=== PATIENT | male | born 1965 | race Caucasian/White ===

== ENCOUNTER 2016-07-21 08:22 | Inpatient (IN) | payer OTHER ==
[2016-07-21 09:12] VITALS: BMI 35.4
--- NOTE | 2016-07-21 11:23 | HP ---
COWS - Scale Resting Pulse: 1= [place] 81-100 Sweatin= Chills/Flushing Restless Observation: 1= Difficult to Sit Still Pupil Size: 1= Pupils >than Normal Bone or Joint Aches: 1= Mild Discomfort Runny Nose/ Eye Tearin= None GI Upset > 30mins: 0= None Tremor Observation: 2= Slight Tremor Visible Yawning Observation: 0= None Anxiety or Irritability: 2=Irritable/Anxious Goose Flesh Skin: 0=Smooth Skin COWS Score: 9 CIWA Score - CIWA Score Nausea/Vomitin-No Nausea/No Vomiting Muscle Tremors: 4-Moderate,w/Arms Extend Anxiety: 4-Mod. Anxious/Guarded Agitation: 3 Paroxysmal Sweats: 3 Orientation: 0-Oriented Tacttile Disturbances: 0-None Auditory Disturbances: 0-None Visual Disturbances: 0-None Headache: 0-None Present CIWA-Ar Total Score: 14 Admission ROS BHS - HPI Chief Complaint: Withdrawal sx. Allergies/Adverse Reactions: Allergies Allergy/AdvReac Type Severity Reaction Status Date / Time No Known Allergies Allergy Verified 07/21/16 10:27 History of Present Illness: 50 y/o man with a long hx. of drug and alcohol dependence is admitted for detox. Pt. denies previous detox or any sobriety. Exam Limitations: No Limitations - Ebola screening Have you traveled outside of the country in the last 21 days: No Have you had contact with anyone from an Ebola affected area: No Have you been sick,other than usual withdrawal symptoms: No Do you have a fever: No - Review of Systems Constitutional: No Symptoms Reported EENT: reports: No Symptoms Reported Respiratory: reports: No Symptoms reported Cardiac: reports: No Symptoms Reported GI: reports: Abdominal cramping : reports: Frequency Musculoskeletal: reports: Joint Pain Integumentary: reports: No Symptoms Reported Neuro: reports: Tremors Endocrine: reports: No Symptoms Reported Hematology: reports: No Symptoms Reported Psychiatric: reports: No Sypmtoms Reported Other Systems: Reviewed and Negative Patient History - Patient Medical History Hx Anemia: No Hx Asthma: No Hx Chronic Obstructive Pulmonary Disease (COPD): No Hx Cancer: No Hx Cardiac Disorders: No Hx Congestive Heart Failure: No Hx Hypertension: No Hx Hypercholesterolemia: No Hx Pacemaker: No HX Cerebrovascular Accident: No Hx Seizures: No Hx Dementia: No Hx Diabetes: No Hx Gastrointestinal Disorders: No Hx Liver Disease: No Hx Genitourinary Disorders: No Hx Sexually Transmitted Disorders: No Hx Renal Disease (ESRD): No Hx Thyroid Disease: No Hx Human Immunodeficiency Virus (HIV): No Hx Hepatitis C: No Hx Depression: Yes Hx Suicide Attempt: No Hx Bipolar Disorder: No Hx Schizophrenia: No - Patient Surgical History Past Surgical History: Yes Hx Orthopedic Surgery: Yes (L hip replacement in 2013) Other Surgical History: Bilateral meniscus repairs Anesthesia Reaction: No - PPD History Previous Implant?: No PPD to be Administered?: Yes - Smoking Cessation Smoking history: Never smoked - Substance & Tx. History Hx Alcohol Use: Yes Hx Substance Use: Yes Substance Use Type: Alcohol, Opiates Hx Substance Use Treatment: No - Substances Abused Alcohol Route: Oral Frequency: Daily Amount used: 10-12 WHISKEY DRINKS Age of first use: 18 Date of Last Use: 07/20/16 OXYCODONE Route: Oral Frequency: Daily Amount used: 50MG Age of first use: 47 Date of Last Use: 07/21/16 Family Disease History - Family Disease History Family Disease History: Heart Disease: Mother (DE), Other: Sister (opioid pain meds) Admission Physical Exam [facility] - Vital Signs Vital Signs: Vital Signs - 24 hr 07/21/16 09:06 Temperature 97.3 F L Pulse Rate 86 Respiratory 18 Rate Blood Pressure 140/96 - Physical General Appearance: Yes: Sweating, Anxious HEENTM: Yes: Within Normal Limits Respiratory: Yes: Chest Non-Tender, Lungs Clear, Normal Breath Sounds Neck: Yes: Supple Breast: Yes: Breast Exam Deferred Cardiology: Yes: Regular Rhythm, Regular Rate, S1, S2 Abdominal: Yes: Normal Bowel Sounds, Non Tender, Soft Genitourinary: Yes: Within Normal Limits Back: Yes: Within Normal Limits Musculoskeletal: Yes: Within Normal Limits Extremities: Yes: Tremors Neurological: Yes: Fully Oriented, Alert Integumentary: Yes: Diaphoresis Lymphatic: Yes: Within Normal Limits - Diagnostic (1) Alcohol dependence with uncomplicated withdrawal Current Visit: Yes Status: Acute (2) Opioid dependence with withdrawal Current Visit: Yes Status: Acute Cleared for Admission [facility] - Detox or Rehab [facility] Level of Care: Medically Managed Detox Regimen/Protocol: Methadone/Librium [facility] Breath Alcohol Content Breath Alcohol Content: 0 Urine Drug Screen - Results Drug Screen Negative: No Urine Drug Screen Results: TCA-Tricyclic Antidepress, OXY-Oxycodone
[2016-07-21] MEDS ORDERED: ACETAMINOPHEN 325 MG TABLET (FP) PO PRN (11:44)
[2016-07-21] MEDS ORDERED: LOPERAMIDE HCL 2 MG CAPSULE PO PRN (11:44)
[2016-07-21] MEDS ORDERED: IBUPROFEN 400 MG TABLET (FP) PO PRN (11:44)
[2016-07-21] MEDS ORDERED: MAGNESIUM HYDROX 2400MG/30ML ORAL SUSPENSION 30 ML CUP PO PRN (11:44)
[2016-07-21] MEDS ORDERED: MENTHOL/PHENOL 1 EACH UD MM PRN (11:44)
[2016-07-21] MEDS ORDERED: guaiFENesin/D-METHORPHAN HB 10 ML UNIT-DOSE CUPS PO PRN (11:44)
[2016-07-21] MEDS ORDERED: chlordiazePOXIDE HCL 25 MG CAPSULE PO PRN (11:44)
[2016-07-21] MEDS ORDERED: MAGNESIUM CITRATE 300 ML BOTTLE PO PRN (11:44)
[2016-07-21] MEDS ORDERED: P-EPHED 60MG/TRIPROLIDI 2.5MG TABLET PO PRN (11:44)
[2016-07-21] MEDS ORDERED: MAG HYDROX/AL HYDROX/SIMETH 30 ML UNIT-DOSE CUP PO PRN (11:44)
[2016-07-21] MEDS ORDERED: hydrOXYzine PAMOATE 50 MG CAPSULE (FP) PO PRN (11:44)
[2016-07-21] MEDS ORDERED: chlordiazePOXIDE HCL 25 MG CAPSULE PO ONE (12:17)
[2016-07-21] MEDS ORDERED: METHADONE HCL 10 MG TABLET (FOR DETOX USE ONLY) PO ONE ×2 (12:18→23:00)
[2016-07-21 15:45] LABS: URINE APPEARANCE CLEAR; URINE BILIRUBIN NEGATIVE (NEGATIVE); URINE BLOOD NEGATIVE (NEGATIVE); URINE COLOR LTYELLOW; URINE GLUCOSE (UA) NEGATIVE (NEGATIVE); URINE KETONE NEGATIVE (NEGATIVE); URINE LEUK ESTERASE NEGATIVE (NEGATIVE); URINE NITRITE NEGATIVE (NEGATIVE); URINE PROTEIN NEGATIVE (NEGATIVE); URINE UROBILINOGEN NEGATIVE E.U./dl (0.2-1.0)
[2016-07-21] MEDS: chlordiazePOXIDE HCL 25 MG CAPSULE PO SCH ×2 (17:13→22:06)
[2016-07-21] MEDS: diphenhydrAMINE HCL 50 MG CAPSULE PO PRN (22:06)
[2016-07-21] MEDS: THIAMINE HCL 100 MG TABLET (FP) PO SCH (22:06)
[2016-07-22] MEDS: chlordiazePOXIDE HCL 25 MG CAPSULE PO SCH ×4 (05:41→22:08)
[2016-07-22 09:47] LABS: PLATELET COUNT 151 K/MM3 (134-434); RDW 12.5 % (11.9-15.9); WHITE BLOOD COUNT 5.7 K/mm3 (4.0-10.0)
[2016-07-22] MEDS ORDERED: METHADONE HCL 10 MG TABLET (FOR DETOX USE ONLY) PO SCH (10:00)
[2016-07-22] MEDS: PRENATAL VITAMINS W/ FOLIC ACID TABLET (FP) PO SCH (10:08)
--- NOTE | 2016-07-22 10:11 | EKG ---
Test Reason : Blood Pressure : / mmHG Vent. Rate : 085 BPM Atrial Rate : 085 BPM P-R Int : 156 ms QRS Dur : 088 ms QT Int : 352 ms P-R-T Axes : 056 030 029 degrees QTc Int : 418 ms NORMAL SINUS RHYTHM MINIMAL VOLTAGE CRITERIA FOR LVH, MAY BE NORMAL VARIANT BORDERLINE ECG NO PREVIOUS ECGS AVAILABLE Confirmed by RONNELL FOUNTAIN MD ([id number]) on 07/22/2016 10:11:16 AM Referred By: Lit Castañeda Confirmed By:RONNELL FOUNTAIN MD
[2016-07-22 10:14] LABS: ALBUMIN 4.2 g/dl (3.4-5.0); ALK PHOS 79 U/L (45-117); ANION GAP 9 (8-16); BILIRUBIN,TOTAL 0.7 mg/dL (0.2-1.0); CO2 29 mmol/L (21-32); CREATININE 1.1 mg/dL (0.7-1.3); GLUCOSE,RANDOM 146 mg/dL (74-106); SGOT/AST 20 U/L (15-37); SGPT/ALT 32 U/L (12-78)
--- NOTE | 2016-07-22 11:30 | PN ---
[facility] CIWA - CIWA Score Nausea/Vomitin Muscle Tremors: 2 Anxiety: 2 Agitation: 2 Paroxysmal Sweats: 3 Orientation: 0-Oriented Tacttile Disturbances: 1-Very Mild Itch/Numbness Auditory Disturbances: 0-None Visual Disturbances: 0-None Headache: 0-None Present CIWA-Ar Total Score: 12 S COWS - Scale Resting Pulse: 0= [place] 80 or Below Sweatin= Chills/Flushing Restless Observation: 1= Difficult to Sit Still Pupil Size: 1= Pupils >than Normal Bone or Joint Aches: 1= Mild Discomfort Runny Nose/ Eye Tearin= Nasal Congestion GI Upset > 30mins: 1= Stomach Cramp Tremor Observation of Outstretched Hands: 0= None Yawning Observation: 0= None Anxiety or Irritability: 1=Feels Anxious/Irritable Goose Flesh Skin: 0=Smooth Skin COWS Score: 7 [facility] Progress Note (SOAP) Subjective: interrupted sleep, sweats Objective: 07/22/16 11:29 Vital Signs Temperature 97.5 F L 07/22/16 09:46 Pulse Rate 88 07/22/16 09:46 Respiratory Rate 18 07/22/16 09:46 Blood Pressure 131/72 07/22/16 09:46 O2 Sat by Pulse Oximetry (%) Laboratory Tests 07/21/16 07/22/16 07/22/16 13:00 06:00 06:00 WBC 5.7 RBC 4.96 Hgb 15.9 Hct 48.1 MCV 97.0 H MCHC 33.0 RDW 12.5 Plt Count 151 MPV 9.0 Sodium 138 Potassium 4.4 Chloride 100 Carbon Dioxide 29 Anion Gap 9 BUN 26 H Creatinine 1.1 Creat Clearance w eGFR > 60 Random Glucose 146 H Calcium 9.0 Total Bilirubin 0.7 AST 20 ALT 32 Alkaline Phosphatase 79 Total Protein 7.0 Albumin 4.2 Urine Color Ltyellow Urine Appearance Clear Urine pH 7.0 Ur Specific [place] 1.021 Urine Protein Negative Urine Glucose (UA) Negative Urine Ketones Negative Urine Blood Negative Urine Nitrite Negative Urine Bilirubin Negative Urine Urobilinogen Negative Ur Leukocyte Esterase Negative pt aox3 in nad ambulating Assessment: 07/22/16 11:30 withdrawal sx's Plan: cont. detox increase fluids
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
[2016-07-22] MEDS: buPROPion HCL 100 MG TABLET PO SCH (17:32)
[2016-07-22] MEDS: THIAMINE HCL 100 MG TABLET (FP) PO SCH (22:08)
[2016-07-22] MEDS: diphenhydrAMINE HCL 50 MG CAPSULE PO PRN (22:08)
[2016-07-23] MEDS: chlordiazePOXIDE HCL 25 MG CAPSULE PO SCH ×2 (05:08→10:17)
--- NOTE | 2016-07-23 09:07 | PN ---
S CIWA - CIWA Score Nausea/Vomitin Muscle Tremors: 3 Anxiety: 3 Agitation: 2 Paroxysmal Sweats: 2 Orientation: 0-Oriented Tacttile Disturbances: 1-Very Mild Itch/Numbness Auditory Disturbances: 1-Very Mild Visual Disturbances: 1-Very Mild Sensitivity Headache: 2-Mild CIWA-Ar Total Score: 18 BHS COWS - Scale Resting Pulse: 0= [place] 80 or Below Sweatin= Chills/Flushing Restless Observation: 3= Extraneous Movement Pupil Size: 1= Pupils >than Normal Bone or Joint Aches: 2= Severe Diffuse Aches Runny Nose/ Eye Tearin= Runny Nose/Eyes GI Upset > 30mins: 2= Nausea/Diarrhea Tremor Observation of Outstretched Hands: 2= Slight Tremor Visible Yawning Observation: 1= 1-2x During Session Anxiety or Irritability: 1=Feels Anxious/Irritable Goose Flesh Skin: 0=Smooth Skin COWS Score: 15 [facility] Progress Note (SOAP) Subjective: ALERT,IRRITABLE,ANXIOUS,INTERRUPTED SLEEP,TREMOR,PAIN IN THE BODY AND BACK Objective: 07/23/16 09:06 Vital Signs Temperature 97.3 F L 07/23/16 06:14 Pulse Rate 76 07/23/16 06:14 Respiratory Rate 18 07/23/16 06:14 Blood Pressure 137/90 07/23/16 06:14 O2 Sat by Pulse Oximetry (%) Laboratory Last Values WBC 5.7 K/mm3 (4.0-10.0) 07/22/16 06:00 RBC 4.96 M/mm3 (4.00-5.60) 07/22/16 06:00 Hgb 15.9 GM/dL (11.7-16.9) 07/22/16 06:00 Hct 48.1 % (35.4-49) 07/22/16 06:00 MCV 97.0 fl (80-96) H 07/22/16 06:00 MCHC 33.0 g/dl (32.0-35.9) 07/22/16 06:00 RDW 12.5 % (11.9-15.9) 07/22/16 06:00 Plt Count 151 K/MM3 (134-434) 07/22/16 06:00 MPV 9.0 fl (7.5-11.1) 07/22/16 06:00 Sodium 138 mmol/L (136-145) 07/22/16 06:00 Potassium 4.4 mmol/L (3.5-5.1) 07/22/16 06:00 Chloride 100 mmol/L (98-107) 07/22/16 06:00 Carbon Dioxide 29 mmol/L (21-32) 07/22/16 06:00 Anion Gap 9 (8-16) 07/22/16 06:00 BUN 26 mg/dL (7-18) H 07/22/16 06:00 Creatinine 1.1 mg/dL (0.7-1.3) 07/22/16 06:00 Creat Clearance w eGFR > 60 (>60) 07/22/16 06:00 Random Glucose 146 mg/dL (74-106) H 07/22/16 06:00 Calcium 9.0 mg/dL (8.5-10.1) 07/22/16 06:00 Total Bilirubin 0.7 mg/dL (0.2-1.0) 07/22/16 06:00 AST 20 U/L (15-37) 07/22/16 06:00 ALT 32 U/L (12-78) 07/22/16 06:00 Alkaline Phosphatase 79 U/L (45-117) 07/22/16 06:00 Total Protein 7.0 g/dl (6.4-8.2) 07/22/16 06:00 Albumin 4.2 g/dl (3.4-5.0) 07/22/16 06:00 Urine Color Ltyellow 07/21/16 13:00 Urine Appearance Clear 07/21/16 13:00 Urine pH 7.0 (5.0-8.0) 07/21/16 13:00 Ur Specific [place] 1.021 (1.001-1.035) 07/21/16 13:00 Urine Protein Negative (NEGATIVE) 07/21/16 13:00 Urine Glucose (UA) Negative (NEGATIVE) 07/21/16 13:00 Urine Ketones Negative (NEGATIVE) 07/21/16 13:00 Urine Blood Negative (NEGATIVE) 07/21/16 13:00 Urine Nitrite Negative (NEGATIVE) 07/21/16 13:00 Urine Bilirubin Negative (NEGATIVE) 07/21/16 13:00 Urine Urobilinogen Negative E.U./dl (0.2-1.0) 07/21/16 13:00 Ur Leukocyte Esterase Negative (NEGATIVE) 07/21/16 13:00 RPR Titer Nonreactive (NONREACTIVE) 07/22/16 06:00 Assessment: 07/23/16 09:06 WITHDRAWAL SYMPTOM Plan: CONTINUE DETOX
[2016-07-23] MEDS ORDERED: METHADONE HCL 5 MG TABLET (FOR DETOX USE ONLY) PO SCH (10:00)
[2016-07-23] MEDS: PRENATAL VITAMINS W/ FOLIC ACID TABLET (FP) PO SCH (10:17)
[2016-07-23] MEDS: buPROPion HCL 100 MG TABLET PO SCH ×2 (11:07→17:37)
[2016-07-23] MEDS: chlordiazePOXIDE 5 MG CAPSULE PO SCH ×2 (17:37→22:07)
[2016-07-23] MEDS: THIAMINE HCL 100 MG TABLET (FP) PO SCH (22:07)
[2016-07-23] MEDS: diphenhydrAMINE HCL 50 MG CAPSULE PO PRN (22:08)
[2016-07-24] MEDS: chlordiazePOXIDE 5 MG CAPSULE PO SCH ×2 (05:46→10:18)
--- NOTE | 2016-07-24 09:45 | PN ---
S Progress Note (SOAP) Subjective: ALERT,IRRITABLE,ANXIOUS,INTERRUPTED SLEEP,TREMOR Objective: 07/24/16 09:44 Vital Signs Temperature 98.2 F 07/24/16 09:37 Pulse Rate 95 H 07/24/16 09:37 Respiratory Rate 16 07/24/16 09:37 Blood Pressure 143/85 07/24/16 09:37 O2 Sat by Pulse Oximetry (%) Assessment: 07/24/16 09:44 WITHDRAWAL SYMPTOM Plan: CONTINUE DETOX
[2016-07-24] MEDS ORDERED: METHADONE HCL 10 MG TABLET (FOR DETOX USE ONLY) PO ONE (10:00)
[2016-07-24] MEDS: PRENATAL VITAMINS W/ FOLIC ACID TABLET (FP) PO SCH (10:18)
[2016-07-24] MEDS: buPROPion HCL 100 MG TABLET PO SCH ×2 (11:00→16:55)
[2016-07-24] MEDS: chlordiazePOXIDE HCL 10 MG CAPSULE PO SCH ×2 (17:02→22:12)
[2016-07-24] MEDS: THIAMINE HCL 100 MG TABLET (FP) PO SCH (22:13)
[2016-07-24] MEDS: diphenhydrAMINE HCL 50 MG CAPSULE PO PRN (22:13)
[2016-07-25] MEDS: chlordiazePOXIDE HCL 10 MG CAPSULE PO SCH (05:47)
[2016-07-25] MEDS ORDERED: METHADONE HCL 5 MG TABLET (FOR DETOX USE ONLY) PO ONE (06:00)
[2016-07-25 06:25] VITALS: BP 140/78; PULSE 60; TEMP 97.7
[2016-07-25] MEDS ORDERED: METHADONE HCL 10 MG TABLET (FOR DETOX USE ONLY) PO SCH (10:00)
--- NOTE | 2016-07-25 14:11 | DS ---
[facility] Detox Discharge Summary Admission Date: 07/21/16 Discharge Date: 07/25/16 - History Present History: Alcohol Dependence, Opioid Dependence Additional Comments: ADVISED PATIENT TO FOLLOW-UP WITH [facility] AFTER DISCHARGE FROM DETOX FOR GENERAL MEDICAL ASSESSMENT AND FOR ANY ABNORMAL ADMISSION LAB VALUES. Pertinent Past History: Depression. - Physical Exam Results Vital Signs: Vital Signs Temperature 97.7 F 07/25/16 06:00 Pulse Rate 60 07/25/16 06:00 Respiratory Rate 20 07/25/16 06:00 Blood Pressure 140/78 07/25/16 06:00 O2 Sat by Pulse Oximetry (%) Pertinent Admission Physical Exam Findings: WITHDRAWAL SYMPTOMS. Laboratory Last Values WBC 5.7 K/mm3 (4.0-10.0) 07/22/16 06:00 RBC 4.96 M/mm3 (4.00-5.60) 07/22/16 06:00 Hgb 15.9 GM/dL (11.7-16.9) 07/22/16 06:00 Hct 48.1 % (35.4-49) 07/22/16 06:00 MCV 97.0 fl (80-96) H 07/22/16 06:00 MCHC 33.0 g/dl (32.0-35.9) 07/22/16 06:00 RDW 12.5 % (11.9-15.9) 07/22/16 06:00 Plt Count 151 K/MM3 (134-434) 07/22/16 06:00 MPV 9.0 fl (7.5-11.1) 07/22/16 06:00 Sodium 138 mmol/L (136-145) 07/22/16 06:00 Potassium 4.4 mmol/L (3.5-5.1) 07/22/16 06:00 Chloride 100 mmol/L (98-107) 07/22/16 06:00 Carbon Dioxide 29 mmol/L (21-32) 07/22/16 06:00 Anion Gap 9 (8-16) 07/22/16 06:00 BUN 26 mg/dL (7-18) H 07/22/16 06:00 Creatinine 1.1 mg/dL (0.7-1.3) 07/22/16 06:00 Creat Clearance w eGFR > 60 (>60) 07/22/16 06:00 Random Glucose 146 mg/dL (74-106) H 07/22/16 06:00 Calcium 9.0 mg/dL (8.5-10.1) 07/22/16 06:00 Total Bilirubin 0.7 mg/dL (0.2-1.0) 07/22/16 06:00 AST 20 U/L (15-37) 07/22/16 06:00 ALT 32 U/L (12-78) 07/22/16 06:00 Alkaline Phosphatase 79 U/L (45-117) 07/22/16 06:00 Total Protein 7.0 g/dl (6.4-8.2) 07/22/16 06:00 Albumin 4.2 g/dl (3.4-5.0) 07/22/16 06:00 Urine Color Ltyellow 07/21/16 13:00 Urine Appearance Clear 07/21/16 13:00 Urine pH 7.0 (5.0-8.0) 07/21/16 13:00 Ur Specific [place] 1.021 (1.001-1.035) 07/21/16 13:00 Urine Protein Negative (NEGATIVE) 07/21/16 13:00 Urine Glucose (UA) Negative (NEGATIVE) 07/21/16 13:00 Urine Ketones Negative (NEGATIVE) 07/21/16 13:00 Urine Blood Negative (NEGATIVE) 07/21/16 13:00 Urine Nitrite Negative (NEGATIVE) 07/21/16 13:00 Urine Bilirubin Negative (NEGATIVE) 07/21/16 13:00 Urine Urobilinogen Negative E.U./dl (0.2-1.0) 07/21/16 13:00 Ur Leukocyte Esterase Negative (NEGATIVE) 07/21/16 13:00 RPR Titer Nonreactive (NONREACTIVE) 07/22/16 06:00 LABS NOTED. - Treatment Hospital Course: Detox Protocol Followed, Detoxed Safely, Responded well, Discharged Condition Good Patient has Accepted a Rehab Referral to: NO - PATIENT WILL FOLLOW-UP AT [facility]. - Medication Discharge Medications: Ambulatory Orders Bupropion HCl [Wellbutrin -] 100 mg PO BID 07/21/16 - Diagnosis (1) Alcohol dependence with uncomplicated withdrawal Status: Acute (2) Opioid dependence with withdrawal Status: Acute (3) Substance induced mood disorder Status: Acute - AMA Did Patient Leave Against Medical Advice: No
[2016-07-26] MEDS ORDERED: METHADONE HCL 5 MG TABLET (FOR DETOX USE ONLY) PO SCH (06:00)
== END 2016-07-25 09:33 | disposition home or self-care (01) | DRG 745 ==
LOC: YASAS 08:22 → Y6N 12:16
PROVIDERS: ADMIT Internal Medicine Addiction Medicine; ATTEND Internal Medicine Addiction Medicine
PROC: HZ2ZZZZ Detoxification Services for Substance Abuse Treatment (ICD-10-PCS; principal; 2016-07-25)
DX: F11.23 Opioid dependence with withdrawal (principal); F10.230 Alcohol dependence with withdrawal, uncomplicated; F19.24 Other psychoactive substance dependence with psychoactive substance-induced mood disorder; F39 Unspecified mood [affective] disorder
CPT/HCPCS: 36415; 80053; 81003; 85027; 86593; 93005; 93010